=== PATIENT | male | born 1990 | race Caucasian/White ===

== ENCOUNTER → 2021-07-21 | Outpatient (CLI) | payer OTHER ==
--- NOTE | 2021-07-21 15:57 | XR ---
EXAMINATION TYPE: XR chest 2V DATE OF EXAM: 07/21/2021 COMPARISON: NONE TECHNIQUE: PA and lateral views submitted. HISTORY: Cough FINDINGS: The lungs are clear and there is no pneumothorax, pleural effusion, or focal pneumonia. Mildly coar sened central interstitium. IMPRESSION: 1. Correlate for bronchitis or mild interstitial pneumonitis.
== END | disposition home or self-care (01) ==
LOC: RADXRMAIN 15:06
PROVIDERS: ATTEND Internal Medicine
DX: R05 Cough (principal)
CPT/HCPCS: 71046

== ENCOUNTER → 2022-04-12 | Outpatient (CLI) | payer OTHER ==
--- NOTE | 2022-04-12 08:21 | US ---
EXAMINATION TYPE: US abdomen limited DATE OF EXAM: 04/12/2022 COMPARISON: NONE CLINICAL HISTORY: R74.01 ELEVATION OF LEVELS OF LIVER. Abnormal labs. No prior abd surgery. EXAM MEASUREMENTS: Liver Length: 19.6 cm Gallbladder Wall: 0.2 cm CBD: 0.4 cm Right Kidney: 11.7 x 5.8 x 4.9 cm Pancreas: Limited visualization Liver: Enlarged in size. Echogenic. Coarse. Hypoechoic area by GB/liver hilum = 4.5 x 1.9 x 2.8 c m, possible focal area of fatty liver sparing Gallbladder: wnl Evidence for sonographic Gama's sign: neg CBD: wnl Right Kidney: No hydronephrosis or masses seen IMPRESSION: 1. Hepatomegaly. Liver is coarse in echo pattern. Correlate with hepatic steatosis or hepatocellular disease. There is a nondescript hypoechoic area near the gallbladder hilum measuring 4.5 cm. Possibly related to focal area of fatty sparing. Recommend CT scan for confirmation.
== END | disposition home or self-care (01) ==
LOC: RADUSWWP 06:56
PROVIDERS: ATTEND Internal Medicine
DX: R16.0 Hepatomegaly, not elsewhere classified (principal)
CPT/HCPCS: 76705

== ENCOUNTER → 2022-04-27 | Outpatient (CLI) | payer OTHER ==
--- NOTE | 2022-04-28 22:19 | CT ---
EXAMINATION TYPE: CT abdomen wo/w con CT DLP: 2343.9 mGycm, Automated exposure control for dose reduction was used. DATE OF EXAM: 04/27/2022 7:38 PM COMPARISON: LIMITED 04/12/2022 CLINICAL INDICATION:Male, 32 years old with history of R74.01 ELEVATION OF LEVELS OF LIVER TRANSAMINA SE L; ELEVATION OF LEVELS OF LIVER TRANSAMINASE TECHNIQUE: Standard CT of the abdomen without and following the administration of 100 cc of Isovue 300 IV contrast material and oral contrast. Coronal and sagittal reformats were performed. FINDINGS: LOWER CHEST: Unremarkable ABDOMEN LIVER: Diffusely hypoattenuating parenchyma. GALLBLADDER AND BILE DUCTS: Unremarkable. PANCREAS: Unremarkable. SPLEEN: Unremarkable. ADRENAL GLANDS: Unremarkable. KIDNEYS AND URETERS: No evidence of hydronephrosis or renal calculus. The ureters are unremarkable. ABDOMEN & PELVIS STOMACH AND BOWEL: Few scattered colonic diverticula are seen in the sigmoid colon. No evidence of b owel obstruction. Appendix is normal. PERITONEUM: No evidence of pneumoperitoneum or free fluid. VASCULATURE: No evidence of aortic aneurysm. MUSCULOSKELETAL: No acute osseous abnormalities. LYMPH NODES: No gross evidence for lymphadenopathy. SOFT TISSUE/ABDOMINAL WALL: Unremarkable IMPRESSION: 1. No evidence for acute abdominal process. 2. Hepatic steatosis. 3. Few scattered clonic diverticula.
== END | disposition home or self-care (01) ==
LOC: RADCTMAIN 17:29
PROVIDERS: ATTEND Internal Medicine
DX: K76.0 Fatty (change of) liver, not elsewhere classified (principal); K57.30 Diverticulosis of large intestine without perforation or abscess without bleeding
CPT/HCPCS: 74170; Q9967 ×2

== ENCOUNTER → 2023-10-16 | Outpatient (CLI) | payer OTHER ==
--- NOTE | 2023-10-16 15:59 | US ---
EXAMINATION TYPE: US abdomen complete DATE OF EXAM: 10/16/2023 COMPARISON: 04/12/2022 CLINICAL INDICATION: Male, 33 years old with history of K76.0 FATTY LIVER; TECHNIQUE: Multiple sonographic images of the abdomen are obtained. FINDINGS: EXAM MEASUREMENTS: Liver Length: 17.1 cm Gallbladder Wall: 0.2 cm CBD: 0.2 cm Spleen: 10.7 cm Right Kidney: 11.5 x 5.0 x 6.0 cm Left Kidney: 11.9 x 6.6 x 5.8 cm Pancreas: Limited visualization of the pancreatic head and tail due to shadowing from bowel gas. Vis ualized body shows no gross abnormal body. Liver: Slight increased echogenicity could represent mild fatty infiltration. Significantly improved from 2021. No focal lesion seen. Gallbladder: wnl Evidence for sonographic Gama's sign: No CBD: wnl Spleen: wnl Right Kidney: ? Solid lesion vs normal renal tissue = 1.6 x 2.0 x 2.2 cm located centrally. No hyd ronephrosis. Left Kidney: wnl Upper IVC: wnl Abd Aorta: wnl IMPRESSION: 1. There may be residual mild fatty infiltration of the liver. Markedly improved from prior 04/12/2022 exam. 2. No gallstones or biliary ductal dilatation. 3. 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 Three-month follow-up ultrasound to reassess as it was not seen previously.
[2023-10-16 16:44] LABS: HCT 45.3 % (39.6-50.0); MCH 29.2 pg (27.0-32.0); MCHC 33.1 g/dL (32.0-37.0); MCV 88.3 FL (80.0-97.0); Mean Platelet Volume 11.5 FL (9.5-12.2); NRBC Per 100 WBC 0 X 10*3/uL (0.00-0.01); Platelet Count 321 X 10*3/uL (140-440); RBC 5.13 X 10*6/uL (4.40-5.60); RDW 13.3 % (11.5-14.5); WBC 5.82 X 10*3/uL (4.50-10.00)
[2023-10-16 17:18] LABS: ALT 31 U/L (10-49); AST 22 U/L (14-35); Albumin 4.4 g/dL (3.8-4.9); Albumin/Globulin Ratio 1.91 Ratio (1.60-3.17); Alkaline Phosphatase 67 U/L (41-126); BUN/Creat Ratio 13.12 Ratio (12.00-20.00); Blood Urea Nitrogen 10.5 mg/dL (9.0-27.0); Calcium 9.4 mg/dL (8.7-10.3); Carbon Dioxide 23.8 mmol/L (21.6-31.8); Chloride 105 mmol/L (96-109); Chol/HDL Ratio 5.76 Ratio; Globulin 2.3 g/dL (1.6-3.3); Glucose 86 mg/dL (70-110); LDL Cholesterol,Calculated 111.2 mg/dL (0.0-131.0); Potassium 4.2 mmol/L (3.5-5.5); Sodium 141 mmol/L (135-145); Total Bilirubin 0.9 mg/dL (0.3-1.2); Total Protein 6.7 g/dL (6.2-8.2)
[2023-10-16 17:19] LABS: Basophils # (A) 0.07 X 10*3/uL (0.00-0.10); Basophils % (A) 1.2 %; Crenated RBC 3+; Eosinophils # (A) 0.14 X 10*3/uL (0.04-0.35); Eosinophils % (A) 2.4 %; Lymphocytes # (A) 2.05 X 10*3/uL (0.90-5.00); Lymphocytes % (A) 35.2 %; Monocytes % (A) 10.3 %; Neutrophils # (A) 2.94 X 10*3/uL (1.80-7.70); Neutrophils % (A) 50.6 %
== END | disposition home or self-care (01) ==
LOC: RADUSWWP 10-05 07:39
PROVIDERS: ATTEND Internal Medicine
DX: Z13.220 Encounter for screening for lipoid disorders (principal); K76.0 Fatty (change of) liver, not elsewhere classified; R53.83 Other fatigue; N28.89 Other specified disorders of kidney and ureter
CPT/HCPCS: 76700; 80053; 80061; 82306; 84443; 85025

== ENCOUNTER → 2024-01-07 | Outpatient (CLI) | payer OTHER ==
--- NOTE | 2024-01-07 09:13 | US ---
EXAMINATION TYPE: US kidneys/renal and bladder DATE OF EXAM: 01/07/2024 COMPARISON: NONE CLINICAL INDICATION: Male, 33 years old with history of N28.1 CYST OF KIDNEY, ACQUIRED; previous exam lesion vs. Column of Gabe EXAM MEASUREMENTS: Right Kidney: 12.5x5.3x5.9 cm Left Kidney: 11.9x6.5x5.4 cm Right Kidney: the area previously believed to be a lesion appears to be normal cortical tissue compat ible with a column of Gabe. Left Kidney: wnl Bladder: wnl Bilateral Jets seen: Yes IMPRESSION: Findings within the right mid liver appears compatible with a column of Gabe. No significant interv al change from the comparison study. Monitoring ultrasound can be performed.
== END | disposition home or self-care (01) ==
LOC: RADUSWWP 06:52
PROVIDERS: ATTEND Internal Medicine
DX: N28.1 Cyst of kidney, acquired (principal)
CPT/HCPCS: 76770